=== PATIENT | female | born 1995 | race African-American/Black ===

== ENCOUNTER 2018-03-02 11:59 | Inpatient (IN) ==
[2018-03-02 12:37] LABS: Basophils % 0.3 % (0.0-0.8); Eosinophils # 0.1 10*3/uL (0.0-0.87); Eosinophils % 1.5 % (0.00-10.9); Hematocrit 30.4 VOL% (35.7-47.0); Hemoglobin 9.6 GM/DL (12.0-16.0); Immature Granulocytes % 0.2 %; Immature Granulocytes Absolute 0.02 #; Lymphocytes # 2.7 10*3/uL (1.4-4.0); Lymphocytes % 30.8 % (21.3-54.2); Mean Corpuscular HGB Conc 31.6 GM/DL (32-36); Mean Corpuscular Hemoglobin 28 PG (27-34); Mean Corpuscular Volume 87.1 FL (87-102); Mean Platelet Volume 10.9 FL (9.6-12.0); Monocytes # 0.9 10*3/uL (0.11-0.8); Monocytes % 9.8 % (1.7-12.7); Neutrophils # 5.1 10*3/uL (1.4-7.4); Neutrophils % 57.4 % (38.7-73.9); Platelet Count 260 T/CUMM (130-400); Red Blood Count 3.49 MC/CUMM (3.8-5.5); Red Cell Distribution Width 14.1 % (9.3-17.3); White Blood Count 8.8 T/CUMM (4-12)
[2018-03-02 12:50] LABS: PT Patient Result 10.6 SECS; Partial Thromboplastin Time 27.3 SECS (0-40)
[2018-03-02 13:02] LABS: Alanine Aminotransferase 21 U/L (13-56); Albumin 2.3 G/DL (3.4-5.0); Alkaline Phosphatase 275 U/L (45-117); Aspartate Amino Transferase 25 U/L (0-37); Bilirubin,Total < 0.39 MG/DL (0.2-1.0); Blood Urea Nitrogen 7 MG/DL (7-18); Calcium 8.6 MG/DL (8.5-10.1); Glucose 69 MG/DL (74-106); Osmolality,Calculated 270.7 MOS/KG (273-304); Potassium 3.8 MMOL/L (3.5-5.1); Sodium 138 MMOL/L (136-145); Total Protein 6.3 G/DL (6.4-8.3); Uric Acid 5.1 MG/DL (2.6-6.0)
[2018-03-02] MEDS ORDERED: LABETALOL 100 MG TABLET PO ONE (13:38)
[2018-03-02 15:00] LABS: Apearance,Urine CLEAR (Clear); Bilirubin,Urine Negative (Negative); Blood, Urine Negative (Negative); Glucose,Urine (UA) Negative (Negative); Ketones,Urine Negative (Negative); Mucus,Urine Occasional /LPF (Occasional); Nitrite,Urine Negative (Negative); Protein,Urine Negative; RBC,Urine 1 /HPF (0-4); Squamous Epithelial Cell,Urine Occasional /HPF (0-10); Urine Color Yellow (Yellow); Urine Specific Gravity 1.009 (1.001-1.035); Urine Urobilinogen < 2.0 EU/DL (0.2-1.0); WBC,Urine 3 /HPF (0-6)
[2018-03-02] MEDS ORDERED: hydrALAZINE 20 MG/1 ML VIAL IV ONE (17:03)
[2018-03-02] MEDS ORDERED: LABETALOL 100 MG TABLET PO SCH (21:00)
[2018-03-03] MEDS ORDERED: LABETALOL 200 MG TABLET PO SCH (09:00)
[2018-03-03] MEDS ORDERED: OXYTOCIN/LR 30 UNIT/1,000 ML BAG IV ONE (11:55)
[2018-03-03] MEDS ORDERED: OXYTOCIN 10 UNIT/ML VIAL IM ONE (11:55)
[2018-03-03] MEDS ORDERED: CITRIC ACID/SODIUM CITRATE 30 ML UDCUP PO ONE (11:57)
[2018-03-03] MEDS ORDERED: FAMOTIDINE 20 MG/2 ML VIAL IV ONE (11:57)
[2018-03-03] MEDS ORDERED: LACTATED RINGERS 1,000 ML IV ONE (11:57)
[2018-03-03] MEDS ORDERED: ceFAZolin 2,000 MG in PREMIX 1 EACH IV ONE (12:06)
[2018-03-03 15:33] LABS: Cord Arterial Blood HCO3 21.6 MMOL/L
[2018-03-03 15:43] LABS: Apearance,Urine CLEAR (Clear); Bilirubin,Urine Negative (Negative); Blood, Urine Negative (Negative); Glucose,Urine (UA) Negative (Negative); Ketones,Urine Negative (Negative); Mucus,Urine Occasional /LPF (Occasional); Nitrite,Urine Negative (Negative); Protein,Urine Negative; RBC,Urine 1 /HPF (0-4); Urine Color Straw (Yellow); Urine Specific Gravity 1.005 (1.001-1.035); Urine Urobilinogen < 2.0 EU/DL (0.2-1.0); WBC,Urine 1 /HPF (0-6)
[2018-03-03] MEDS ORDERED: PHENYLEPHRINE 1 MG/10 ML SYRINGE IV ONE (15:55)
[2018-03-03] MEDS ORDERED: MORPHINE 10 MG/10 ML VIAL ONE (15:56)
[2018-03-03] MEDS ORDERED: fentaNYL 100 MCG/2 ML VIAL ONE (15:56)
[2018-03-03] MEDS ORDERED: ACETAMINOPHEN 325 MG TABLET PO PRN (16:08)
[2018-03-03] MEDS ORDERED: ONDANSETRON 4 MG/2 ML VIAL IV PRN (16:08)
[2018-03-03] MEDS ORDERED: RHO(D) IMMUNE GLOBULIN 300 MCG SYRINGE IM ONE (16:08)
[2018-03-03] MEDS ORDERED: OXYTOCIN/LR 20 UNIT/1,000 ML BAG IV ONE (16:08)
[2018-03-03] MEDS ORDERED: LACTATED RINGERS 1,000 ML IV SCH (16:30)
[2018-03-03] MEDS: DOCUSATE SODIUM 100 MG CAPSULE PO SCH (21:00)
[2018-03-03] MEDS ORDERED: hydrOXYzine HCL 25 MG/1 ML VIAL IM PRN (21:43)
[2018-03-03] MEDS: ceFAZolin 1,000 MG in SYRINGE 1 EACH IV SCH (23:05)
[2018-03-03] MEDS: FUROSEMIDE 40 MG/4 ML VIAL IV SCH (23:10)
[2018-03-04] MEDS: FUROSEMIDE 40 MG/4 ML VIAL IV SCH ×2 (05:21→11:36)
[2018-03-04] MEDS: IBUPROFEN 800 MG TABLET PO PRN ×2 (07:24→18:14)
[2018-03-04] MEDS: ceFAZolin 1,000 MG in SYRINGE 1 EACH IV SCH ×2 (07:26→18:27)
[2018-03-04 07:55] LABS: Basophils % 0.3 % (0.0-0.8); Eosinophils # 0.1 10*3/uL (0.0-0.87); Eosinophils % 0.7 % (0.00-10.9); Hematocrit 32.7 VOL% (35.7-47.0); Hemoglobin 10.8 GM/DL (12.0-16.0); Immature Granulocytes % 0.4 %; Immature Granulocytes Absolute 0.04 #; Lymphocytes # 1.8 10*3/uL (1.4-4.0); Lymphocytes % 18.4 % (21.3-54.2); Mean Corpuscular Hemoglobin 28 PG (27-34); Mean Corpuscular Volume 83.8 FL (87-102); Mean Platelet Volume 10.9 FL (9.6-12.0); Monocytes % 9.9 % (1.7-12.7); Neutrophils # 6.8 10*3/uL (1.4-7.4); Neutrophils % 70.3 % (38.7-73.9); Platelet Count 289 T/CUMM (130-400); Red Cell Distribution Width 14.1 % (9.3-17.3); White Blood Count 9.7 T/CUMM (4-12)
[2018-03-04] MEDS: MULTIVITAMIN (PRENATAL) TABLET PO SCH (09:54)
[2018-03-04] MEDS: DOCUSATE SODIUM 100 MG CAPSULE PO SCH ×2 (09:55→21:33)
[2018-03-04] MEDS ORDERED: FUROSEMIDE 40 MG/4 ML VIAL IV ONE (11:30)
[2018-03-04] MEDS: SIMETHICONE CHEW 80 MG TABLET PO PRN (18:19)
[2018-03-04] MEDS: MAGNESIUM HYDROXIDE SUSP 30 ML UDCUP PO PRN (18:19)
[2018-03-04] MEDS ORDERED: BISACODYL 10 MG SUPP RECTAL PRN (18:36)
[2018-03-04] MEDS ORDERED: MEPERIDINE 25 MG/1 ML VIAL IM PRN (18:38)
[2018-03-04] MEDS ORDERED: PROMETHAZINE 25 MG/1 ML VIAL IM PRN (18:38)
[2018-03-04] MEDS ORDERED: MEPERIDINE 25 MG/1 ML VIAL ONE (18:41)
[2018-03-04] MEDS ORDERED: PROMETHAZINE 25 MG/1 ML VIAL ONE (18:42)
[2018-03-05] MEDS: SIMETHICONE CHEW 80 MG TABLET PO PRN ×2 (00:03→09:36)
[2018-03-05] MEDS: IBUPROFEN 800 MG TABLET PO PRN ×3 (02:11→21:35)
[2018-03-05] MEDS: MULTIVITAMIN (PRENATAL) TABLET PO SCH (09:36)
[2018-03-05] MEDS: MAGNESIUM HYDROXIDE SUSP 30 ML UDCUP PO PRN ×2 (09:36→21:35)
[2018-03-05] MEDS: DOCUSATE SODIUM 100 MG CAPSULE PO SCH ×2 (09:37→21:35)
[2018-03-06 08:21] VITALS: BP 141/87
[2018-03-06] MEDS: MULTIVITAMIN (PRENATAL) TABLET PO SCH (09:04)
[2018-03-06] MEDS: DOCUSATE SODIUM 100 MG CAPSULE PO SCH (09:04)
== END 2018-03-06 14:45 | disposition home or self-care (01) | DRG 766 ==
LOC: N.LDOUT 11:59 → N.LD 12:01 → N.OB 03-03 20:58
PROVIDERS: ADMIT Obstetrics & Gynecology; ATTEND Obstetrics & Gynecology
PROC: LDCSECT (ICD-10-PCS; 2018-03-03 15:00)

== ENCOUNTER 2019-09-17 07:42 | Inpatient (IN) ==
[2019-09-17] MEDS ORDERED: CITRIC ACID/SODIUM CITRATE 30 ML UDCUP PO ONE (08:01)
[2019-09-17] MEDS ORDERED: FAMOTIDINE 20 MG/2 ML VIAL IV ONE (08:01)
[2019-09-17] MEDS ORDERED: ceFAZolin 3,000 MG in SYRINGE 1 EACH IV ONE (08:01)
[2019-09-17] MEDS: LACTATED RINGERS 1,000 ML IV SCH (08:11)
[2019-09-17] MEDS ORDERED: LACTATED RINGERS 1,000 ML IV ONE ×2 (08:14→10:34)
[2019-09-17] MEDS ORDERED: OXYTOCIN/LR 30 UNIT/1,000 ML BAG IV ONE (08:27)
[2019-09-17] MEDS ORDERED: OXYTOCIN 10 UNIT/ML VIAL IM ONE (08:27)
[2019-09-17 08:41] LABS: Basophils % 0.3 % (0.0-0.8); Eosinophils # 0.1 10*3/uL (0.0-0.87); Eosinophils % 1.5 % (0.00-10.9); Hematocrit 33.4 VOL% (35.7-47.0); Hemoglobin 10.6 GM/DL (12.0-16.0); Immature Granulocytes % 0.3 %; Immature Granulocytes Absolute 0.03 #; Lymphocytes # 2.7 10*3/uL (1.4-4.0); Lymphocytes % 30.1 % (21.3-54.2); Mean Corpuscular HGB Conc 31.7 GM/DL (32-36); Mean Corpuscular Volume 86.8 FL (87-102); Mean Platelet Volume 11.2 FL (9.6-12.0); Monocytes % 9.3 % (1.7-12.7); Neutrophils % 58.5 % (38.7-73.9); Platelet Count 269 T/CUMM (130-400); Red Blood Count 3.85 MC/CUMM (3.8-5.5); Red Cell Distribution Width 14.6 % (9.3-17.3); White Blood Count 8.9 T/CUMM (4-12)
[2019-09-17 08:44] LABS: Albumin 2.5 G/DL (3.4-5.0); Bilirubin,Total 0.4 MG/DL (0.2-1.0); Calcium 8.6 MG/DL (8.5-10.1); Osmolality,Calculated 271.7 MOS/KG (273-304); Total Protein 7.4 G/DL (6.4-8.3)
[2019-09-17 09:59] LABS: Cord Arterial Blood HCO3 21.6 MMOL/L
[2019-09-17 10:00] LABS: Cord Venous Blood PCO2 45.1 MMHG
[2019-09-17 10:07] LABS: Apearance,Urine CLEAR (Clear); Bilirubin,Urine Negative (Negative); Blood, Urine Negative (Negative); Glucose,Urine (UA) Negative (Negative); Ketones,Urine Negative (Negative); Mucus,Urine Occasional /LPF (Occasional); Nitrite,Urine Negative (Negative); Protein,Urine Negative; RBC,Urine 1 /HPF (0-4); Squamous Epithelial Cell,Urine Occasional /HPF (0-10); Urine Color Yellow (Yellow); Urine Specific Gravity 1.017 (1.001-1.035); Urine Urobilinogen < 2.0 EU/DL (0.2-1.0); WBC,Urine <1 /HPF (0-6)
[2019-09-17] MEDS ORDERED: BUPIVACAINE 0.5% 50 ML VIAL ONE (10:33)
[2019-09-17] MEDS ORDERED: BUPIVACAINE SPINAL 0.75% 2 ML AMP SPINAL ONE (10:33)
[2019-09-17] MEDS ORDERED: MORPHINE 10 MG/10 ML VIAL ONE (10:33)
[2019-09-17] MEDS ORDERED: SODIUM CHLORIDE 0.9% 50 ML IV ONE (10:33)
[2019-09-17] MEDS ORDERED: KETOROLAC 30 MG/1 ML VIAL ONE (10:34)
[2019-09-17] MEDS ORDERED: ONDANSETRON 4 MG/2 ML VIAL ONE (10:34)
[2019-09-17] MEDS ORDERED: fentaNYL 100 MCG/2 ML VIAL ONE (10:34)
[2019-09-17] MEDS ORDERED: EPINEPHrine 1 MG/ML VIAL ONE (10:38)
[2019-09-17] MEDS ORDERED: DEXAMETHASONE 4 MG/1 ML VIAL ONE (10:38)
[2019-09-17] MEDS ORDERED: OXYTOCIN/LR 20 UNIT/1,000 ML BAG IV ONE ×2 (11:34→11:39)
[2019-09-17] MEDS ORDERED: MIDAZOLAM 2 MG/2 ML VIAL ONE (11:58)
[2019-09-17] MEDS: diphenhydrAMINE 50 MG/1 ML VIAL IV PRN ×2 (13:52→16:58)
[2019-09-17] MEDS: ceFAZolin 1,000 MG in SYRINGE 1 EACH IV SCH (17:19)
[2019-09-17 17:46] LABS: Basophils % 0.2 % (0.0-0.8); Hematocrit 33.2 VOL% (35.7-47.0); Hemoglobin 10.5 GM/DL (12.0-16.0); Immature Granulocytes % 0.5 %; Immature Granulocytes Absolute 0.07 #; Lymphocytes # 1.1 10*3/uL (1.4-4.0); Lymphocytes % 7.5 % (21.3-54.2); Mean Corpuscular HGB Conc 31.6 GM/DL (32-36); Mean Corpuscular Volume 87.6 FL (87-102); Monocytes % 4.2 % (1.7-12.7); Neutrophils % 87.6 % (38.7-73.9); Platelet Count 268 T/CUMM (130-400); Red Blood Count 3.79 MC/CUMM (3.8-5.5); Red Cell Distribution Width 14.7 % (9.3-17.3)
[2019-09-18] MEDS ORDERED: SODIUM CHLORIDE 0.9% 50 ML IV ONE (01:59)
[2019-09-18] MEDS: ceFAZolin 1,000 MG in SYRINGE 1 EACH IV SCH (02:20)
[2019-09-18] MEDS: LACTATED RINGERS 1,000 ML IV SCH ×2 (04:17→07:01)
[2019-09-18 05:50] LABS: Basophils % 0.2 % (0.0-0.8); Eosinophils % 0.2 % (0.00-10.9); Hematocrit 27.8 VOL% (35.7-47.0); Hemoglobin 8.7 GM/DL (12.0-16.0); Immature Granulocytes % 0.4 %; Immature Granulocytes Absolute 0.05 #; Lymphocytes % 23.7 % (21.3-54.2); Mean Corpuscular HGB Conc 31.3 GM/DL (32-36); Mean Corpuscular Volume 87.7 FL (87-102); Mean Platelet Volume 10.7 FL (9.6-12.0); Neutrophils % 65.5 % (38.7-73.9); Platelet Count 247 T/CUMM (130-400); Red Blood Count 3.17 MC/CUMM (3.8-5.5); Red Cell Distribution Width 14.7 % (9.3-17.3); White Blood Count 12.5 T/CUMM (4-12)
[2019-09-18] MEDS: METOCLOPRAMIDE 10 MG TABLET PO SCH ×2 (08:36→15:08)
[2019-09-18] MEDS: FERROUS SULFATE 325 MG TABLET PO SCH ×2 (08:36→21:46)
[2019-09-18] MEDS: MAGNESIUM HYDROXIDE SUSP 30 ML UDCUP PO PRN ×2 (08:37→21:45)
[2019-09-18] MEDS: DOCUSATE SODIUM 100 MG CAPSULE PO SCH ×2 (08:38→21:46)
[2019-09-19] MEDS: METOCLOPRAMIDE 10 MG TABLET PO SCH ×2 (00:35→09:38)
[2019-09-19 07:45] VITALS: BP 139/76
[2019-09-19] MEDS: MAGNESIUM HYDROXIDE SUSP 30 ML UDCUP PO PRN (09:38)
[2019-09-19] MEDS: DOCUSATE SODIUM 100 MG CAPSULE PO SCH (09:40)
== END 2019-09-19 13:10 | disposition home or self-care (01) | DRG 540 ==
LOC: N.LDOUT 07:42 → N.LD 07:43 → N.OB 13:21
PROVIDERS: ADMIT Obstetrics & Gynecology; ATTEND Obstetrics & Gynecology
PROC: LDCSECT (ICD-10-PCS; 2019-09-17 09:00)